=== PATIENT | female | born 1995 | race African-American/Black ===

== ENCOUNTER 2019-03-28 14:03 | Emergency (ER) | payer SELFPAY ==
[~2019-03-28] VITALS: Ht 167.6 cm; Wt 65.9 kg
[2019-03-28] MEDS ORDERED: IBU800 M1 PO (14:23)
[2019-03-28 14:45] LABS: STREP SCREEN POSITIVE
[2019-03-28] MEDS ORDERED: CLEOCIN HC150 MG/CAP PO (17:20)
[2019-03-28] MEDS ORDERED: MAGIC MOUTH PO (17:22)
[2019-03-28] MEDS ORDERED: NORCO 325 MG-51 TAB PO (17:42)
[2019-03-28 17:55] VITALS: BP 110/73; PULSE 91; TEMP 98.3
== END 2019-03-28 18:00 | disposition home or self-care (01) ==
LOC: COL.ER 14:03
PROVIDERS: Physician Assistant
DX: J36 Peritonsillar abscess (principal); B95.5 Unspecified streptococcus as the cause of diseases classified elsewhere; J45.909 Unspecified asthma, uncomplicated; F17.210 Nicotine dependence, cigarettes, uncomplicated; Z79.1 Long term (current) use of non-steroidal anti-inflammatories (NSAID)
CPT/HCPCS: J1100; J2405; J3010; J7030